=== PATIENT | male | born 1950 | race Asian ===

== ENCOUNTER 2018-12-13 14:00 | Inpatient (IN) | payer OTHER ==
[~2018-12-13] VITALS: Ht 170.2 cm; Wt 81.2 kg
[2018-12-13] MEDS ORDERED: PLEASE ENTER HEIGHT AND WEIGHT MC SCH (14:30)
[2018-12-13] MEDS ORDERED: PLEASE ENTER ALLERGIES MC SCH (14:30)
[2018-12-13] MEDS ORDERED: SODIUM CHLORIDE FLUSH 10ML SYR IVF ONE (14:30)
[2018-12-13 15:08] LABS: BASOPHILS # (AUTO) 0.04 x10^3/uL (0-0.1); BASOPHILS % (AUTO) 0 % (0-1); EOSINOPHILS # (AUTO) 0.05 x10^3/uL (0-0.4); EOSINOPHILS % (AUTO) 0 % (1-7); LYMPHOCYTES # (AUTO) 1.88 x10^3/uL (1-3.4); LYMPHOCYTES % (AUTO) 13 % (22-44); MD NO; MEAN CORPUSCULAR HEMOGLOBIN 34.5 pg (27.5-34.5); MEAN CORPUSCULAR HGB CONC 33.4 g/dL (33.2-36.2); MEAN CORPUSCULAR VOLUME 103.1 fL (81-97); MEAN PLATELET VOLUME 7.1 fL (7.4-10.4); MONOCYTES # (AUTO) 1.19 x10^3/uL (0.2-0.8); MONOCYTES % (AUTO) 8 % (2-9); NEUTROPHILS % (AUTO) 79 % (42-75); PLATELET COUNT 270 x10^3/uL (130-400); RED BLOOD COUNT 3.71 x10^6/uL (4.38-5.82); RED CELL DISTRIBUTION WIDTH 12.9 % (9.4-14.8)
[2018-12-13 15:17] LABS: ALBUMIN 3.1 g/dL (3.4-5.0); ANION GAP 6 mmol/L (5-15); CALCIUM 8.2 mg/dL (8.5-10.1); CHLORIDE 101 mmol/L (98-107); CREATININE 0.88 mg/dL (0.7-1.3)
[2018-12-13] MEDS ORDERED: CEFTRIAXONE 1,000 MG in SODIUM CHLORIDE 0.9% 50 ML IVPB ONE (16:00)
[2018-12-13] MEDS ORDERED: ATOR40TA78 PO (16:00)
[2018-12-13] MEDS ORDERED: AMLO10TA4 PO (16:00)
[2018-12-13] MEDS ORDERED: LISI-170 PO (16:00)
[2018-12-13] MEDS ORDERED: AZITHROMYCIN 500 MG in SODIUM CHLORIDE 0.9% 250 ML IVPB ONE (16:00)
[2018-12-13] MEDS ORDERED: CEFTRIAXONE PMX 1GM/50ML 50 ML ONE (16:08)
[2018-12-13] MEDS ORDERED: ONDANSETRON ODT 4 MG PO PRN (16:30)
[2018-12-13] MEDS ORDERED: POLYETHYLENE GLYCOL 17 GM PACKET PO PRN (16:30)
[2018-12-13] MEDS ORDERED: SODIUM CHLORIDE FLUSH 10ML SYR IVF PRN (16:30)
[2018-12-13] MEDS ORDERED: LABETALOL 5MG/ML, 20ML IVPush PRN (16:30)
[2018-12-13] MEDS ORDERED: ONDANSETRON 2MG/ML, 2ML IVPush PRN (16:30)
[2018-12-13 16:32] LABS: D-DIMER 2.13 ug/mlFEU (0.00-0.52); INTERNATIONAL NORMALIZED RATIO 1.01 (0.93-1.1); PROTHROMBIN TIME 10.7 Seconds (9.6-11.5)
[2018-12-13 16:40] LABS: FREE T4 (FREE THYROXINE) 1.29 ng/dL (0.76-1.46)
[2018-12-13 18:02] VITALS: BP 134/78
[2018-12-13] MEDS: AMPICILLIN/SULBACTAM 3 GM in SODIUM CHLORIDE 0.9% 100 ML IV SCH (18:24)
[2018-12-13] MEDS: ENOXAPARIN 40 MG/0.4 ML SQ SCH (18:24)
[2018-12-13 20:20] LABS: RAPID INFLUENZA A Negative (Negative); RAPID INFLUENZA B Negative (Negative)
[2018-12-13 20:42] VITALS: BP 121/68
[2018-12-13] MEDS ORDERED: DOXYCYCLINE 100MG TABLET PO SCH (21:00)
[2018-12-13] MEDS: ATORVASTATIN 10 MG TABLET PO SCH (22:09)
[2018-12-13] MEDS: DOXYCYCLINE 100MG TABLET HOMEMEDPO SCH (22:09)
[2018-12-13] MEDS: GUAIFENESIN 200 MG TABLET PO SCH (22:09)
[2018-12-13] MEDS: KETOROLAC 30 MG/1 ML IVPush PRN (23:12)
[2018-12-13] MEDS ORDERED: OMNIPAQUE 350 MG/ML, 100ML BOTTLE ONE (23:56)
[2018-12-14] MEDS: AMPICILLIN/SULBACTAM 3 GM in SODIUM CHLORIDE 0.9% 100 ML IV SCH ×4 (00:16→20:26)
[2018-12-14 01:34] VITALS: BP 117/63
[2018-12-14 05:57] LABS: BASOPHILS # (AUTO) 0.04 x10^3/uL (0-0.1); BASOPHILS % (AUTO) 0 % (0-1); EOSINOPHILS # (AUTO) 0.12 x10^3/uL (0-0.4); EOSINOPHILS % (AUTO) 1 % (1-7); LYMPHOCYTES # (AUTO) 1.99 x10^3/uL (1-3.4); LYMPHOCYTES % (AUTO) 16 % (22-44); MD NO; MEAN CORPUSCULAR HEMOGLOBIN 34.9 pg (27.5-34.5); MEAN CORPUSCULAR HGB CONC 34.2 g/dL (33.2-36.2); MEAN PLATELET VOLUME 7.3 fL (7.4-10.4); MONOCYTES # (AUTO) 1.12 x10^3/uL (0.2-0.8); MONOCYTES % (AUTO) 9 % (2-9); NEUTROPHILS # (AUTO) 8.95 x10^3/uL (1.8-6.8); NEUTROPHILS % (AUTO) 73 % (42-75); PLATELET COUNT 266 x10^3/uL (130-400); RED BLOOD COUNT 3.47 x10^6/uL (4.38-5.82); RED CELL DISTRIBUTION WIDTH 13.1 % (9.4-14.8)
[2018-12-14] MEDS: GUAIFENESIN 200 MG TABLET PO SCH ×4 (06:00→20:25)
[2018-12-14 06:09] LABS: CALCIUM 8.4 mg/dL (8.5-10.1); CHLORIDE 106 mmol/L (98-107)
[2018-12-14 06:24] LABS: ALANINE AMINOTRANSFERASE 45 U/L (12-78); ALBUMIN 2.6 g/dL (3.4-5.0); ALKALINE PHOSPHATASE 138 U/L (45-117); ANION GAP 9 mmol/L (5-15); BILIRUBIN,TOTAL 0.6 mg/dL (0.2-1.0); CREATININE 0.81 mg/dL (0.7-1.3); TOTAL PROTEIN 6.7 g/dL (6.4-8.2)
[2018-12-14 08:00] VITALS: BP 115/63
[2018-12-14] MEDS: SENNA/DOCUSATE TABLET PO SCH (08:29)
[2018-12-14] MEDS: DOXYCYCLINE 100MG TABLET HOMEMEDPO SCH ×2 (08:29→20:26)
[2018-12-14] MEDS: LISINOPRIL 20 MG TABLET PO SCH (09:42)
[2018-12-14] MEDS ORDERED: PHENYLEPHRINE 10 MG/ML ONE (11:02)
[2018-12-14] MEDS ORDERED: LIDOCAINE-MPF 1%, 5ML ONE ×2 (11:45)
[2018-12-14] MEDS: KETOROLAC 30 MG/1 ML IVPush PRN (12:20)
[2018-12-14 13:23] LABS: INTERNATIONAL NORMALIZED RATIO 1.05 (0.93-1.1); PROTHROMBIN TIME 11.1 Seconds (9.6-11.5)
[2018-12-14 13:28] VITALS: BP 126/69
[2018-12-14] MEDS ORDERED: MIDAZOLAM 1 MG/ML, 2ML IV PRN (16:00)
[2018-12-14] MEDS ORDERED: ONDANSETRON 2MG/ML, 2ML IV PRN (16:00)
[2018-12-14] MEDS ORDERED: ACETAMINOPHEN 325 MG TABLET PO PRN (16:00)
[2018-12-14] MEDS ORDERED: PROMETHAZINE 25 MG/ML, 1ML IV PRN (16:00)
[2018-12-14] MEDS ORDERED: hydrALAzine 20 MG/ML, 1ML IV PRN (16:00)
[2018-12-14] MEDS ORDERED: OXYcodone 5 MG/5 ML ORAL.SOL UDC PO PRN (16:00)
[2018-12-14] MEDS ORDERED: ALBUTEROL/IPRATROPIUM 2.5MG/0.5MG, 3 ML NPPB PRN (16:00)
[2018-12-14] MEDS ORDERED: LABETALOL 5MG/ML, 20ML IV PRN (16:00)
[2018-12-14] MEDS ORDERED: HYDROmorphone 2 MG/ML, 1ML IVPush PRN (16:00)
[2018-12-14] MEDS ORDERED: FENTANYL PF 250 MCG/5ML ONE (16:11)
[2018-12-14] MEDS ORDERED: EPINEPHRINE 1 MG/ML, 1ML ONE (16:56)
[2018-12-14] MEDS ORDERED: NEOSTIGMINE 1 MG/ML, 10ML ONE (17:20)
[2018-12-14] MEDS ORDERED: SUCCINYLCHOLINE 20 MG/ML, 10ML ONE (17:20)
[2018-12-14] MEDS ORDERED: CEFAZOLIN 1,000 MG ONE (17:20)
[2018-12-14] MEDS ORDERED: GLYCOPYRROLATE 0.2MG/1ML, 5ML ONE (17:20)
[2018-12-14] MEDS ORDERED: PROPOFOL 10 MG/ML, 20ML ONE (17:20)
[2018-12-14] MEDS ORDERED: ROCURONIUM 10MG/ML,5ML ONE (17:20)
[2018-12-14] MEDS ORDERED: ONDANSETRON 2MG/ML, 2ML ONE (17:20)
[2018-12-14] MEDS ORDERED: FENTANYL PF 100 MCG/2ML ONE (17:51)
[2018-12-14] MEDS ORDERED: OXYcodone 5 MG/5 ML ORAL.SOL UDC ONE (17:51)
[2018-12-14] MEDS ORDERED: ACETAMINOPHEN 650 MG/20.3 ML UDC ONE (17:51)
[2018-12-14] MEDS: FENTANYL PF 100 MCG/2ML IV PRN ×5 (17:54→18:45)
[2018-12-14] MEDS: ENOXAPARIN 40 MG/0.4 ML SQ SCH (18:30)
[2018-12-14 19:00] VITALS: BP 145/81
[2018-12-14] MEDS: ATORVASTATIN 10 MG TABLET PO SCH (20:26)
[2018-12-14] MEDS: ACETAMINOPHEN 500 MG TABLET PO SCH (20:26)
[2018-12-14 23:35] VITALS: BP 125/78
[2018-12-15] MEDS: ACETAMINOPHEN 500 MG TABLET PO SCH ×4 (01:55→21:07)
[2018-12-15] MEDS: AMPICILLIN/SULBACTAM 3 GM in SODIUM CHLORIDE 0.9% 100 ML IV SCH ×4 (01:55→21:07)
[2018-12-15 03:59] VITALS: BP 105/67
[2018-12-15 05:23] LABS: BASOPHILS # (AUTO) 0.01 x10^3/uL (0-0.1); BASOPHILS % (AUTO) 0 % (0-1); EOSINOPHILS % (AUTO) 0 % (1-7); LYMPHOCYTES # (AUTO) 1.05 x10^3/uL (1-3.4); LYMPHOCYTES % (AUTO) 12 % (22-44); MD NO; MEAN CORPUSCULAR HGB CONC 33.3 g/dL (33.2-36.2); MEAN PLATELET VOLUME 6.9 fL (7.4-10.4); MONOCYTES % (AUTO) 3 % (2-9); NEUTROPHILS % (AUTO) 85 % (42-75); PLATELET COUNT 295 x10^3/uL (130-400); RED BLOOD COUNT 3.54 x10^6/uL (4.38-5.82); RED CELL DISTRIBUTION WIDTH 13.2 % (9.4-14.8)
[2018-12-15 05:29] LABS: ANION GAP 6 mmol/L (5-15); CHLORIDE 106 mmol/L (98-107)
[2018-12-15] MEDS: GUAIFENESIN 200 MG TABLET PO SCH ×4 (06:24→21:07)
[2018-12-15] MEDS: OXYcodone IR 5MG TABLET PO PRN (06:24)
[2018-12-15 08:35] VITALS: BP 132/87
[2018-12-15] MEDS: DOXYCYCLINE 100MG TABLET HOMEMEDPO SCH ×2 (08:38→21:07)
[2018-12-15] MEDS: IBUPROFEN 800 MG TABLET PO SCH ×3 (08:39→17:06)
[2018-12-15] MEDS: SENNA/DOCUSATE TABLET PO SCH (08:39)
[2018-12-15] MEDS: LISINOPRIL 20 MG TABLET PO SCH (08:39)
[2018-12-15 14:15] VITALS: BP 120/72
[2018-12-15] MEDS: ENOXAPARIN 40 MG/0.4 ML SQ SCH (17:06)
[2018-12-15 19:55] VITALS: BP 125/74
[2018-12-15] MEDS: ATORVASTATIN 10 MG TABLET PO SCH (21:07)
[2018-12-16] MEDS: AMPICILLIN/SULBACTAM 3 GM in SODIUM CHLORIDE 0.9% 100 ML IV SCH ×4 (04:23→21:12)
[2018-12-16] MEDS: ACETAMINOPHEN 500 MG TABLET PO SCH ×4 (04:23→21:11)
[2018-12-16 04:34] VITALS: BP 137/78
[2018-12-16] MEDS: GUAIFENESIN 200 MG TABLET PO SCH ×4 (06:01→21:12)
[2018-12-16 08:47] VITALS: BP 153/83
[2018-12-16] MEDS: LISINOPRIL 20 MG TABLET PO SCH (08:50)
[2018-12-16] MEDS: IBUPROFEN 800 MG TABLET PO SCH ×2 (08:51→17:04)
[2018-12-16] MEDS: DOXYCYCLINE 100MG TABLET HOMEMEDPO SCH ×2 (08:51→21:11)
[2018-12-16] MEDS: SENNA/DOCUSATE TABLET PO SCH (08:51)
[2018-12-16 14:20] VITALS: BP 149/77
[2018-12-16 18:22] VITALS: BP 134/71
[2018-12-16] MEDS: ENOXAPARIN 40 MG/0.4 ML SQ SCH (18:23)
[2018-12-16 19:50] VITALS: BP 127/72
[2018-12-16] MEDS: ATORVASTATIN 10 MG TABLET PO SCH (21:11)
[2018-12-17] MEDS: IBUPROFEN 800 MG TABLET PO SCH ×3 (00:38→16:58)
[2018-12-17 01:27] VITALS: BP 130/74
[2018-12-17] MEDS: ACETAMINOPHEN 500 MG TABLET PO SCH ×4 (04:08→23:25)
[2018-12-17] MEDS: AMPICILLIN/SULBACTAM 3 GM in SODIUM CHLORIDE 0.9% 100 ML IV SCH ×4 (04:09→23:28)
[2018-12-17] MEDS: GUAIFENESIN 200 MG TABLET PO SCH ×4 (05:30→23:25)
[2018-12-17 06:07] LABS: BASOPHILS # (AUTO) 0.03 x10^3/uL (0-0.1); BASOPHILS % (AUTO) 0 % (0-1); EOSINOPHILS # (AUTO) 0.41 x10^3/uL (0-0.4); EOSINOPHILS % (AUTO) 5 % (1-7); LYMPHOCYTES # (AUTO) 2.16 x10^3/uL (1-3.4); LYMPHOCYTES % (AUTO) 26 % (22-44); MD NO; MEAN CORPUSCULAR HGB CONC 32.9 g/dL (33.2-36.2); MEAN CORPUSCULAR VOLUME 103.3 fL (81-97); MEAN PLATELET VOLUME 6.5 fL (7.4-10.4); MONOCYTES # (AUTO) 0.57 x10^3/uL (0.2-0.8); MONOCYTES % (AUTO) 7 % (2-9); NEUTROPHILS # (AUTO) 5.14 x10^3/uL (1.8-6.8); NEUTROPHILS % (AUTO) 62 % (42-75); PLATELET COUNT 337 x10^3/uL (130-400); RED BLOOD COUNT 3.75 x10^6/uL (4.38-5.82)
[2018-12-17 06:15] LABS: ALBUMIN 2.5 g/dL (3.4-5.0); ANION GAP 5 mmol/L (5-15); CALCIUM 7.9 mg/dL (8.5-10.1); CHLORIDE 106 mmol/L (98-107)
[2018-12-17 06:30] LABS: ALANINE AMINOTRANSFERASE 52 U/L (12-78); ALKALINE PHOSPHATASE 137 U/L (45-117); BILIRUBIN,TOTAL 0.5 mg/dL (0.2-1.0); CREATININE 0.72 mg/dL (0.7-1.3); TOTAL PROTEIN 6.8 g/dL (6.4-8.2)
[2018-12-17 06:47] LABS: HCT (SEDRATE) 38.8 % (39.2-51.8)
[2018-12-17] MEDS: SENNA/DOCUSATE TABLET PO SCH (09:00)
[2018-12-17] MEDS: DOXYCYCLINE 100MG TABLET HOMEMEDPO SCH ×2 (09:31→23:25)
[2018-12-17] MEDS: LISINOPRIL 20 MG TABLET PO SCH (09:32)
[2018-12-17 11:16] VITALS: BP 127/70
[2018-12-17 13:07] VITALS: BP 127/75
[2018-12-17] MEDS: ENOXAPARIN 40 MG/0.4 ML SQ SCH (18:18)
[2018-12-17 20:24] VITALS: BP 138/70
[2018-12-17] MEDS: ATORVASTATIN 10 MG TABLET PO SCH (23:25)
[2018-12-18] MEDS: IBUPROFEN 800 MG TABLET PO SCH ×3 (01:13→17:06)
[2018-12-18 02:53] VITALS: BP 145/75
[2018-12-18] MEDS: ACETAMINOPHEN 500 MG TABLET PO SCH ×2 (03:30→10:24)
[2018-12-18] MEDS: AMPICILLIN/SULBACTAM 3 GM in SODIUM CHLORIDE 0.9% 100 ML IV SCH (04:11)
[2018-12-18] MEDS: OMEPRAZOLE 20 MG CAPSULE.DR PO SCH (05:32)
[2018-12-18] MEDS: GUAIFENESIN 200 MG TABLET PO SCH ×4 (05:33→21:42)
[2018-12-18 06:28] LABS: BASOPHILS # (AUTO) 0.02 x10^3/uL (0-0.1); BASOPHILS % (AUTO) 0 % (0-1); EOSINOPHILS # (AUTO) 0.45 x10^3/uL (0-0.4); EOSINOPHILS % (AUTO) 5 % (1-7); LYMPHOCYTES # (AUTO) 2.07 x10^3/uL (1-3.4); LYMPHOCYTES % (AUTO) 25 % (22-44); MD NO; MEAN CORPUSCULAR HEMOGLOBIN 33.9 pg (27.5-34.5); MEAN CORPUSCULAR VOLUME 102.6 fL (81-97); MEAN PLATELET VOLUME 6.8 fL (7.4-10.4); MONOCYTES # (AUTO) 0.55 x10^3/uL (0.2-0.8); MONOCYTES % (AUTO) 7 % (2-9); NEUTROPHILS # (AUTO) 5.15 x10^3/uL (1.8-6.8); NEUTROPHILS % (AUTO) 63 % (42-75); PLATELET COUNT 355 x10^3/uL (130-400); RED BLOOD COUNT 3.67 x10^6/uL (4.38-5.82); RED CELL DISTRIBUTION WIDTH 13.2 % (9.4-14.8)
[2018-12-18 06:38] LABS: CHLORIDE 103 mmol/L (98-107)
[2018-12-18 06:51] LABS: ALANINE AMINOTRANSFERASE 232 U/L (12-78); ALBUMIN 2.6 g/dL (3.4-5.0); ALKALINE PHOSPHATASE 181 U/L (45-117); ANION GAP 8 mmol/L (5-15); BILIRUBIN,TOTAL 0.5 mg/dL (0.2-1.0); CALCIUM 8.1 mg/dL (8.5-10.1); CREATININE 0.61 mg/dL (0.7-1.3)
[2018-12-18] MEDS: LISINOPRIL 20 MG TABLET PO SCH (08:54)
[2018-12-18] MEDS: DOXYCYCLINE 100MG TABLET HOMEMEDPO SCH (08:55)
[2018-12-18] MEDS: SENNA/DOCUSATE TABLET PO SCH (08:56)
[2018-12-18 09:00] VITALS: BP 157/80
[2018-12-18] MEDS: ERTAPENEM 1 GM in SODIUM CHLORIDE 0.9% 50 ML IV SCH (11:37)
[2018-12-18] MEDS: OXYcodone IR 5MG TABLET PO PRN (12:52)
[2018-12-18 14:06] VITALS: BP 118/71
[2018-12-18] MEDS: ENOXAPARIN 40 MG/0.4 ML SQ SCH (18:13)
[2018-12-18 20:15] VITALS: BP 149/79
[2018-12-19] MEDS: IBUPROFEN 800 MG TABLET PO SCH ×3 (01:36→18:00)
[2018-12-19 02:21] VITALS: BP 154/70
[2018-12-19] MEDS: OMEPRAZOLE 20 MG CAPSULE.DR PO SCH (05:39)
[2018-12-19] MEDS: GUAIFENESIN 200 MG TABLET PO SCH ×4 (05:39→22:56)
[2018-12-19 06:17] LABS: CHLORIDE 105 mmol/L (98-107)
[2018-12-19 06:22] LABS: ALANINE AMINOTRANSFERASE 499 U/L (12-78); ALBUMIN 2.8 g/dL (3.4-5.0); ALKALINE PHOSPHATASE 194 U/L (45-117); ANION GAP 6 mmol/L (5-15); BILIRUBIN,TOTAL 0.5 mg/dL (0.2-1.0); CALCIUM 8.1 mg/dL (8.5-10.1); TOTAL PROTEIN 7.4 g/dL (6.4-8.2)
[2018-12-19] MEDS: SENNA/DOCUSATE TABLET PO SCH (08:29)
[2018-12-19 08:30] VITALS: BP 138/74
[2018-12-19] MEDS: LISINOPRIL 20 MG TABLET PO SCH (08:30)
[2018-12-19] MEDS: ERTAPENEM 1 GM in SODIUM CHLORIDE 0.9% 50 ML IV SCH (11:29)
[2018-12-19 14:45] VITALS: BP 121/74
[2018-12-19] MEDS: ENOXAPARIN 40 MG/0.4 ML SQ SCH (17:59)
[2018-12-19 19:19] VITALS: BP 129/68
[2018-12-20 00:38] VITALS: BP 128/71
[2018-12-20] MEDS: IBUPROFEN 800 MG TABLET PO SCH ×3 (01:09→16:06)
[2018-12-20] MEDS: GUAIFENESIN 200 MG TABLET PO SCH ×4 (05:01→20:48)
[2018-12-20] MEDS: OMEPRAZOLE 20 MG CAPSULE.DR PO SCH (05:01)
[2018-12-20 05:24] LABS: CHLORIDE 107 mmol/L (98-107)
[2018-12-20 05:31] LABS: ALANINE AMINOTRANSFERASE 411 U/L (12-78); ALBUMIN 2.5 g/dL (3.4-5.0); ALKALINE PHOSPHATASE 184 U/L (45-117); ANION GAP 6 mmol/L (5-15); BILIRUBIN,TOTAL 0.2 mg/dL (0.2-1.0); CALCIUM 7.9 mg/dL (8.5-10.1); TOTAL PROTEIN 6.5 g/dL (6.4-8.2)
[2018-12-20 08:57] VITALS: BP 120/72
[2018-12-20] MEDS: LISINOPRIL 20 MG TABLET PO SCH (08:58)
[2018-12-20] MEDS: SENNA/DOCUSATE TABLET PO SCH (08:58)
[2018-12-20] MEDS: ERTAPENEM 1 GM in SODIUM CHLORIDE 0.9% 50 ML IV SCH (12:57)
[2018-12-20 15:32] VITALS: BP 147/73
[2018-12-20] MEDS: ENOXAPARIN 40 MG/0.4 ML SQ SCH (18:12)
[2018-12-20 20:00] VITALS: BP 125/69
[2018-12-21] MEDS: IBUPROFEN 800 MG TABLET PO SCH ×2 (01:10→08:26)
[2018-12-21 01:35] VITALS: BP 136/67
[2018-12-21 05:54] LABS: CALCIUM 7.9 mg/dL (8.5-10.1); CHLORIDE 108 mmol/L (98-107)
[2018-12-21 06:04] LABS: ALANINE AMINOTRANSFERASE 365 U/L (12-78); ALBUMIN 2.6 g/dL (3.4-5.0); ALKALINE PHOSPHATASE 186 U/L (45-117); ANION GAP 4 mmol/L (5-15); BILIRUBIN,TOTAL 0.2 mg/dL (0.2-1.0); CREATININE 0.75 mg/dL (0.7-1.3); TOTAL PROTEIN 6.6 g/dL (6.4-8.2)
[2018-12-21 06:22] LABS: BASOPHILS # (AUTO) 0.02 x10^3/uL (0-0.1); BASOPHILS % (AUTO) 0 % (0-1); EOSINOPHILS # (AUTO) 0.42 x10^3/uL (0-0.4); EOSINOPHILS % (AUTO) 6 % (1-7); LYMPHOCYTES # (AUTO) 2.36 x10^3/uL (1-3.4); LYMPHOCYTES % (AUTO) 34 % (22-44); MD NO; MEAN CORPUSCULAR HEMOGLOBIN 33.3 pg (27.5-34.5); MEAN CORPUSCULAR HGB CONC 32.6 g/dL (33.2-36.2); MEAN CORPUSCULAR VOLUME 102.1 fL (81-97); MEAN PLATELET VOLUME 6.5 fL (7.4-10.4); MONOCYTES # (AUTO) 0.56 x10^3/uL (0.2-0.8); MONOCYTES % (AUTO) 8 % (2-9); NEUTROPHILS % (AUTO) 51 % (42-75); PLATELET COUNT 412 x10^3/uL (130-400); RED BLOOD COUNT 3.42 x10^6/uL (4.38-5.82); RED CELL DISTRIBUTION WIDTH 13.3 % (9.4-14.8)
[2018-12-21] MEDS: GUAIFENESIN 200 MG TABLET PO SCH ×4 (06:30→20:55)
[2018-12-21] MEDS: OMEPRAZOLE 20 MG CAPSULE.DR PO SCH (06:30)
[2018-12-21 06:50] LABS: HCT (SEDRATE) 37.7 % (39.2-51.8)
[2018-12-21 07:34] VITALS: BP 154/77
[2018-12-21] MEDS: LISINOPRIL 20 MG TABLET PO SCH (08:26)
[2018-12-21] MEDS: SENNA/DOCUSATE TABLET PO SCH (08:26)
[2018-12-21] MEDS: ERTAPENEM 1 GM in SODIUM CHLORIDE 0.9% 50 ML IV SCH (11:20)
[2018-12-21 14:00] VITALS: BP 123/70
[2018-12-21] MEDS: ENOXAPARIN 40 MG/0.4 ML SQ SCH (18:21)
[2018-12-21 19:57] VITALS: BP 155/73
[2018-12-22 01:34] VITALS: BP 130/76
[2018-12-22] MEDS: OMEPRAZOLE 20 MG CAPSULE.DR PO SCH (05:03)
[2018-12-22] MEDS: GUAIFENESIN 200 MG TABLET PO SCH ×4 (05:03→20:59)
[2018-12-22 05:20] LABS: BASOPHILS # (AUTO) 0.03 x10^3/uL (0-0.1); BASOPHILS % (AUTO) 0 % (0-1); EOSINOPHILS # (AUTO) 0.47 x10^3/uL (0-0.4); EOSINOPHILS % (AUTO) 7 % (1-7); LYMPHOCYTES # (AUTO) 2.23 x10^3/uL (1-3.4); LYMPHOCYTES % (AUTO) 31 % (22-44); MD NO; MEAN CORPUSCULAR HEMOGLOBIN 34.3 pg (27.5-34.5); MEAN CORPUSCULAR HGB CONC 33.8 g/dL (33.2-36.2); MEAN CORPUSCULAR VOLUME 101.5 fL (81-97); MEAN PLATELET VOLUME 6.4 fL (7.4-10.4); MONOCYTES # (AUTO) 0.56 x10^3/uL (0.2-0.8); MONOCYTES % (AUTO) 8 % (2-9); NEUTROPHILS # (AUTO) 3.92 x10^3/uL (1.8-6.8); NEUTROPHILS % (AUTO) 54 % (42-75); PLATELET COUNT 407 x10^3/uL (130-400); RED BLOOD COUNT 3.38 x10^6/uL (4.38-5.82); RED CELL DISTRIBUTION WIDTH 12.9 % (9.4-14.8)
[2018-12-22 05:33] LABS: ALBUMIN 2.8 g/dL (3.4-5.0); ANION GAP 5 mmol/L (5-15); CALCIUM 8.1 mg/dL (8.5-10.1); CHLORIDE 107 mmol/L (98-107)
[2018-12-22 05:37] LABS: ALANINE AMINOTRANSFERASE 283 U/L (12-78); ALKALINE PHOSPHATASE 167 U/L (45-117); BILIRUBIN,TOTAL 0.4 mg/dL (0.2-1.0); CREATININE 0.71 mg/dL (0.7-1.3)
[2018-12-22 08:36] VITALS: BP 137/78
[2018-12-22] MEDS: SENNA/DOCUSATE TABLET PO SCH (09:35)
[2018-12-22] MEDS: LISINOPRIL 20 MG TABLET PO SCH (09:35)
[2018-12-22] MEDS: ERTAPENEM 1 GM in SODIUM CHLORIDE 0.9% 50 ML IV SCH (11:07)
[2018-12-22 13:31] VITALS: BP 147/73
[2018-12-22] MEDS: ENOXAPARIN 40 MG/0.4 ML SQ SCH (18:22)
[2018-12-22 20:32] VITALS: BP 148/77
[2018-12-23 02:12] VITALS: BP 141/82
[2018-12-23] MEDS: GUAIFENESIN 200 MG TABLET PO SCH ×3 (05:42→16:29)
[2018-12-23] MEDS: OMEPRAZOLE 20 MG CAPSULE.DR PO SCH (05:42)
[2018-12-23 07:50] VITALS: BP 124/69
[2018-12-23] MEDS: LISINOPRIL 20 MG TABLET PO SCH (09:00)
[2018-12-23] MEDS: SENNA/DOCUSATE TABLET PO SCH (09:00)
[2018-12-23] MEDS: ERTAPENEM 1 GM in SODIUM CHLORIDE 0.9% 50 ML IV SCH (11:30)
[2018-12-23 13:55] VITALS: BP 133/73
[2018-12-23] MEDS ORDERED: GUAI200T3 PO (15:59)
== END 2018-12-23 17:05 | disposition home or self-care (01) | DRG 853 ==
LOC: ED 16:38 → EDIP 16:40 → 4NOR 17:58 → DCLOUNGE 12-23 16:35
PROVIDERS: ADMIT Hospitalist; ATTEND Hospitalist
PROC: 0BNK4ZZ Release Right Lung, Percutaneous Endoscopic Approach (ICD-10-PCS; principal; 2018-12-14 16:00)
PROC: 02HV33Z Insertion of Infusion Device into Superior Vena Cava, Percutaneous Approach (ICD-10-PCS; 2018-12-16)
PROC: B5181ZA Fluoroscopy of Superior Vena Cava using Low Osmolar Contrast, Guidance (ICD-10-PCS; 2018-12-16)
PROC: B548ZZA Ultrasonography of Superior Vena Cava, Guidance (ICD-10-PCS; 2018-12-16)
DX: A41.9 Sepsis, unspecified organism (principal); J86.9 Pyothorax without fistula; J18.1 Lobar pneumonia, unspecified organism; J96.01 Acute respiratory failure with hypoxia; E87.1 Hypo-osmolality and hyponatremia; E44.0 Moderate protein-calorie malnutrition; J90 Pleural effusion, not elsewhere classified; D53.9 Nutritional anemia, unspecified; E78.5 Hyperlipidemia, unspecified; E78.00 Pure hypercholesterolemia, unspecified; T36.0X5A Adverse effect of penicillins, initial encounter; R74.0 Nonspecific elevation of levels of transaminase and lactic acid dehydrogenase [LDH]; I10 Essential (primary) hypertension; Z82.49 Family history of ischemic heart disease and other diseases of the circulatory system; Z90.49 Acquired absence of other specified parts of digestive tract; Z68.28 Body mass index [BMI] 28.0-28.9, adult; Y92.89 Other specified places as the place of occurrence of the external cause
CPT/HCPCS: 36415; 84145; 87400; 99285; J3490; 36573; 71045; 71046; 71275; 76700; 80048; 80053; 80074; 82040; 82947; 83605; 83735; 84100; 84439; 84443; 85025; 85379; 85610; 85651; 86140; 86480; 87015; 87040; 87070; 87075; 87102; 87116; 87176; 87205; 87206; 88112; 88305; 93005; 93306; 96365; 96375; C1729; G0378; J0171; J0295; J0456; J0690; J0696; J1335; J1650; J1885; J2405; J2704; J2710; J3010; Q9967; C1751; C1760; J0330; J2370; J7050